=== PATIENT | female | born 1975 | race Caucasian/White ===

== ENCOUNTER 2019-06-27 15:58 | Emergency (ER) | payer BC ==
[~2019-06-27] VITALS: Ht 154.9 cm; Wt 72.6 kg
[2019-06-27 16:35] LABS: INFLUENZA A ANTIGEN Negative (Negative); INFLUENZA B ANTIGEN Negative (Negative)
[2019-06-27] MEDS ORDERED: PREDNISONE 20 M20 M1 PO (16:36)
[2019-06-27] MEDS ORDERED: ZPAK PO (16:36)
[2019-06-27 17:09] VITALS: BP 133/88
== END 2019-06-27 17:10 | disposition home or self-care (01) ==
LOC: M.ERS 15:58
PROVIDERS: Family Medicine
DX: J40 Bronchitis, not specified as acute or chronic (principal)